=== PATIENT | male | born 1960 | race Caucasian/White ===

== ENCOUNTER → 2024-09-11 | Outpatient (CLI) | payer OTHER, SELFPAY ==
--- NOTE | 2024-09-11 09:12 | RAD_ITS ---
EXAM: DOUBLE-CONTRAST ESOPHAGRAM CLINICAL HISTORY: DYSPHAGIA. MEAT IS WORSE WHEN SWALLOWING. GETTING WORSE OVER 2 YEARS. COMPARISON: NO RELEVANT PRIOR. TECHNIQUE: Following the ingestion of effervescent granules and high density barium, swallowing mechanism was evaluated under fluoroscopy in the oblique, AP, lateral, and RPO positions. Barium tablet was also utilized. Imaging sequences were documented as usual. FLUOROSCOPIC TIME: 98 sec Dose: 65.05 mGy FINDINGS: No abnormalities were seen in the hypopharynx. Esophageal motility was normal. No constricting or obstructing lesions were demonstrated. Large Zenker's diverticulum is demonstrated measuring 2.5 x 1.9 cm. No intraluminal filling defects. No ulcerations. No episodes of mild gastroesophageal reflux. No hiatal hernia was demonstrated. RAD/Esophagus Dual Contrast IMPRESSION: LARGE ZENKER'S DIVERTICULUM. Reading Location: [place] [id number]
== END | disposition home or self-care (01) ==
LOC: RAD 09:09
PROVIDERS: PCP Physician Assistant; Referring Provider Internal Medicine Gastroenterology; Visit Provider Internal Medicine Gastroenterology
DX: R13.10 Dysphagia, unspecified (principal)
CPT/HCPCS: 74221